=== PATIENT | female | born 1970 | race Caucasian/White ===

== ENCOUNTER 2017-03-13 06:24 | Day surgery (SDC) | payer OTHER ==
[~2017-03-13] VITALS: Ht 157.5 cm; Wt 57.7 kg
[~2017-03-13 06:24] MED LIST: CYCL-36 PO; DIFL500T PO; ROBA750T3 PO; VICO7.5T PO; Z.0.BCPILL PO
[2017-03-13 06:48] VITALS: BP 138/84; PULSE 85; RESP 20; TEMP 98.3; O2SAT 99
[2017-03-13] MEDS ORDERED: SODIUM CHLOR 0.9% 1000 ML INJ 1,000 ML IV SCH (07:00)
[2017-03-13] MEDS ORDERED: DIVA250ER PO (07:29)
[2017-03-13] MEDS ORDERED: LISI10TA PO (07:29)
[2017-03-13] MEDS ORDERED: TIZA4CAP3 PO (07:29)
[2017-03-13] MEDS ORDERED: DIAZEPAM 10 MG TAB PO ONE (08:00)
[2017-03-13 08:05] LABS: AUTOMATED NEUTROPHIL # 5.6 TH/MM3 (1.8-7.7); BASOPHIL # 0.1 TH/MM3 (0-0.2); BASOPHIL % 0.9 % (0.0-2.0); EOSINOPHIL # 0.3 TH/MM3 (0-0.4); EOSINOPHIL % 3.4 % (0.0-4.0); HEMATOCRIT 37.5 % (35.0-46.0); HEMOGLOBIN 13.5 GM/DL (11.6-15.3); LYMPH % 29.2 % (9.0-44.0); LYMPHOCYTE # 2.9 TH/MM3 (1.0-4.8); MEAN PLATELET VOLUME 7.6 FL (7.0-11.0); MONO % 9.4 % (0.0-8.0); MONOCYTE # 0.9 TH/MM3 (0-0.9); NEUT % 57.1 % (16.0-70.0); PLATELET COUNT 388 TH/MM3 (150-450); RED BLOOD COUNT 3.99 MIL/MM3 (4.00-5.30); RED CELL DISTRIBUTION WIDTH 13.4 % (11.6-17.2); WHITE BLOOD COUNT 9.8 TH/MM3 (4.0-11.0)
[2017-03-13 08:11] LABS: MEAN CORPUSCULAR HGB CONC 36.1 % (32.0-36.0)
[2017-03-13 08:12] LABS: PROTHROMBIN TIME - PATIENT 9.7 SEC (9.8-11.6)
[2017-03-13 08:36] LABS: BICARBONATE 24.3 MEQ/L (21.0-32.0); CALCIUM 9.1 MG/DL (8.5-10.1); CREATININE 1.01 MG/DL (0.50-1.00)
--- NOTE | 2017-03-13 09:19 | PD.RAD ---
Post Procedure Progress Note Pre Procedure Diagnosis: (1) Head ache Post Procedure Diagnosis: (1) Head ache Procedure Date: Mar 13, 2017 Supervising Radiologist: Ervin Smith Estimated blood loss: None Anesthesia: Local Plan of Activity Patient to Unit: ROPU Patient Condition: Good Additional Comments: LP completed. Single puncture at L3/L4. Clear CSF Opening pressure-18.5 Closing pressure 7 Full dictated report to follow See PACS Report for procedural detail/treatment Ervin Smith MD Mar 13, 2017 09:19
[2017-03-13 09:20] VITALS: BP 141/89; PULSE 73; RESP 18; TEMP 98.4; O2SAT 100
--- NOTE | 2017-03-13 09:39 | RADRPT ---
EXAM DATE/TIME: 03/13/2017 10:09 [place] COMPARISON: No previous studies available for comparison. INDICATIONS : Patient presents with pseudotumor cerebri in need of lumbar puncture with opening pressures for evalu ation. MEDICAL HISTORY : Anxiety Migraines CVA 2017 [place] SURGICAL HISTORY : Endometrial ablation DNC Breast reduction LEEP ENCOUNTER: Initial ACUITY: 4 - 6 months PAIN SCORE: 5/10 LOCATION: Right Lower back and leg LUMBAR PUNCTURE TIME: 0904 hours FLUORO TIME: 1.17 minutes ACCESS LEVEL: L3-4 OPENING PRESSURE: 18.5 cm of water CLOSING PRESSURE: 7 cm of water FLUID: 22 cc of clear CSF was collected and sent to the laboratory for analysis. PROCEDURE : 1. Fluoroscopic guided lumbar puncture. 2. Recording of opening pressure. The risks, benefits and alternatives to the procedure were explained and verbal and written consent w as obtained. The site was prepped in sterile fashion. Full sterile technique was used, including ca p, mask, sterile gloves and gown and a large sterile sheet. Hand hygiene and 2% chlorhexidine and/or betadine/alcohol prep was utilized per protocol for cutaneous antisepsis. The skin and subcutaneous tissues were infiltrated with local anesthetic solution. With fluoroscopic guidance the lumbar thecal sac was punctured at the above level described above and the opening pressure was recorded. The above described fluid was removed without difficulty. The patient tolerated the procedure well and there were no complications. CONCLUSION: Uncomplicated fluoroscopically guided lumbar puncture with pressures as above. Ervin Smith MD on March 13, 2017 at 9:37 Board Certified Radiologist. This report was verified electronically.
[2017-03-13 10:12] LABS: TOTAL PROTEIN,CSF 35.2 MG/DL (15.0-45.0)
[2017-03-13 11:03] LABS: RBC TUBE #1 20 /MM3; VOLUME TUBE # 1 4.8 ML; WBC TUBE #1 0 /MM3 (0-10)
[2017-03-13 11:04] LABS: CSF LYMPHOCYTES 0 %; CSF NEUTROPHILS 0 %
[2017-03-13 11:07] LABS: SUPERNATE COLOR TUBE #1 CLEAR (CLEAR)
[2017-03-13 11:09] LABS: CSF NEUTROPHILS 0 %; RBC TUBE #4 15 /MM3; WBC TUBE #4 3 /MM3 (0-10)
[2017-03-13 11:10] VITALS: BP 127/83; PULSE 85; RESP 20; O2SAT 99
[2017-03-13 11:28] LABS: CSF LYMPHOCYTES 100 %
[2017-03-14 09:50] LABS: CMV DNA QUANT BY RAPID PCR Negative (Negative); CMV PCR SPECIMEN SOURCE LUMBAR PUNCTURE
[2017-03-14 12:01] LABS: HSV 1,PCR Negative (Negative)
[2017-03-15 11:51] LABS: VZV PCR RESULT <500 (<500 copies)
[2017-03-15 19:52] LABS: CSF CRYPTOCOCCUS ANTIGEN NOT DETECTED (NEGATIVE)
[2017-03-16 09:28] LABS: CSF CRYPTOCOCCUS AG CONF ND (NOT DETECTD)
== END 2017-03-13 11:10 | disposition home or self-care (01) ==
LOC: HROP 06:24 → HRIP 06:37 → HROP 11:10
PROVIDERS: ATTEND Psychiatry & Neurology Neurology
DX: G93.2 Benign intracranial hypertension (principal); G35 Multiple sclerosis; G43.909 Migraine, unspecified, not intractable, without status migrainosus; F41.9 Anxiety disorder, unspecified; Z86.73 Personal history of transient ischemic attack (TIA), and cerebral infarction without residual deficits
CPT/HCPCS: 62270; 77003; 80048; 82040; 82042; 82784; 82945; 83873; 83916; 84157; 85025; 85610; 85730; 86403; 86618; 87070; 87205; 87497; 87529; 87799; 88108; 89051; J7030

== ENCOUNTER 2017-03-16 08:18 | Emergency (ER) | payer OTHER ==
[~2017-03-16] VITALS: Ht 157.5 cm; Wt 75.0 kg
[~2017-03-16 08:18] MED LIST changes: -CYCL-36 PO; -DIFL500T PO; +DIVA250ER PO; +LISI10TA PO; -ROBA750T3 PO; +TIZA4CAP3 PO; -VICO7.5T PO; -Z.0.BCPILL PO
[2017-03-16 08:22] VITALS: BP 188/104; PULSE 86; RESP 18; TEMP 97.6; O2SAT 99
[2017-03-16] MEDS ORDERED: SODIUM CHLOR 0.9% 1000 ML INJ 1,000 ML IV ONE ×2 (08:37→08:45)
[2017-03-16 08:42] VITALS: PULSE 76; RESP 18; O2SAT 98
[2017-03-16] MEDS ORDERED: diphenhydrAMINE HCL 50 MG/ML VIAL IVP ONE (08:45)
[2017-03-16] MEDS ORDERED: MORPHINE SULFATE 4 MG/ML INJ IV PUSH ONE (08:45)
[2017-03-16] MEDS ORDERED: KETOROLAC TROMETHAMINE 30 MG/ML (IVP) VIAL IVP ONE (08:45)
[2017-03-16] MEDS ORDERED: SODIUM CHLORIDE 0.9% FLUSH 10 ML FLUSH IVF PRN (08:45)
[2017-03-16] MEDS ORDERED: PROCHLORPERAZINE INJ 10 MG/2 ML VIAL IVP ONE (08:45)
--- NOTE | 2017-03-16 08:49 | PD ---
HPI Chief Complaint: Back/ Neck Pain or Injury Time Seen by Provider: 08:30 Travel History International Travel<30 days: No Contact w/Intl Traveler<30days: No Traveled to known affect area: No History of Present Illness HPI The patient is a 46-year-old female who presents emergency department for headache. The patient is currently undergoing evaluation by her neurologist , Dr. Amador, for MS. The patient underwent MRI and MRA in January, had possible findings concerning for MS. The patient was also evaluated by ophthalmology for possible optic neuritis. She is had intermittent left eye complaints as well as intermittent right lower extremity complaints of weakness and numbness. The patient underwent lumbar puncture by interventional radiology 2 days ago. The patient states her last 3 days she's been lying in bed, getting up going to the bathroom, however, she went to work today she developed a headache. The headache radiates from the lower back up into the neck and posterior aspect of the head, is worse with movements, unsure if it is worse with standing upright. She denies any nausea or vomiting. She denies any acute focal deficits. The patient call the radiology suite advised her to come to the emergency department for evaluation. She does have a history of migraines. PFSH Past Medical History Cancer: No Cardiovascular Problems: No Diabetes: No Endocrine: No Genitourinary: Yes (prone to uti) Hepatitis: No Hiatal Hernia: No Hypertension: Yes Immune Disorder: No (gets colds frequently) Musculoskeletal: Yes (CHRONIC BACK PAIN) Neurologic: Yes (migraines) Psychiatric: No Reproductive: No Respiratory: No Immunizations Current: No Migraines: Yes Thyroid Disease: No ?: Not LMP: 02/24/17 : 2 Para: 1 : 1 Dilation and Curettage (D&C): Yes Past Surgical History AICD: No Gynecologic Surgery: Yes (LEEP, BREAST REDUCTION) Joint Replacement: No Pacemaker: No Other Surgery: Yes (BREAST REDUCT 92 LEEP 03) Social History Alcohol Use: Yes (RARE) Tobacco Use: No Substance Use: No Allergies-Medications (Allergen,Severity, Reaction): Coded Allergies: butorphanol (Unverified Allergy, Severe, 03/16/17) Reported Meds & Prescriptions Reported Meds & Active Scripts Active Reported Depakote ER (Divalproex Sodium) 250 Mg Robert 250 Mg PO DAILY Lisinopril-Hctz 10-12.5 Mg Tab 1 Tab PO DAILY Tizanidine (Tizanidine HCl) 4 Mg Cap 4 Mg PO TID Review of Systems Except as stated in HPI: all other systems reviewed are Neg General / Constitutional: No: Fever Eyes: No: Blurred Vision, Photophobia HENT: Positive: Headaches, Neck Pain Cardiovascular: No: Chest Pain or Discomfort Respiratory: No: Shortness of Breath Gastrointestinal: No: Nausea, Vomiting, Abdominal Pain Musculoskeletal: Positive: Pain (back pain) Physical Exam Narrative GENERAL: Awake, alert, pleasant 46-year-old female who appears her stated age and is in no acute respiratory distress. SKIN: Focused skin assessment warm/dry. HEAD: Atraumatic. Normocephalic. EYES: Pupils equal and round. Pupils are 4 mm bilateral and reactive. ENT: No nasal bleeding or discharge. Mucous membranes pink and moist. NECK: Trachea midline. No JVD. Patient is able to rotate the neck to left and right as well as the chin to the chest. No true meningeal signs. CARDIOVASCULAR: Regular rate and rhythm. No murmur appreciated. RESPIRATORY: No accessory muscle use. Clear to auscultation. Breath sounds equal bilaterally. GASTROINTESTINAL: Abdomen soft, non-tender, nondistended. MUSCULOSKELETAL: No obvious deformities. No clubbing. No cyanosis. No edema. NEUROLOGICAL: Awake and alert. No obvious cranial nerve deficits. Motor grossly within normal limits. Normal speech. Nonfocal. Oriented 4. Follows commands without difficulty. PSYCHIATRIC: Appropriate mood and affect; insight and judgment normal. Data Data Last Documented VS Vital Signs Date Time Temp Pulse Resp B/P (MAP) Pulse Ox O2 Delivery O2 Flow Rate FiO2 03/16/17 08:42 76 18 98 Room Air 03/16/17 08:22 97.6 Orders Orders Ecg Monitoring (03/16/17 08:37) Iv Access Insert/Monitor (03/16/17 08:37) Oximetry (03/16/17 08:37) Sodium Chloride 0.9% Flush (Ns Flush) (03/16/17 08:45) Ketorolac Inj (Toradol Inj) (03/16/17 08:45) Prochlorperazine Inj (Compazine Inj) (03/16/17 08:45) Diphenhydramine Inj (Benadryl Inj) (03/16/17 08:45) Sodium Chlor 0.9% 1000 Ml Inj (Ns 1000 M (03/16/17 08:37) Sodium Chlor 0.9% 1000 Ml Inj (Ns 1000 M (03/16/17 08:45) Morphine Inj (Morphine Inj) (03/16/17 08:45) Ed Discharge Order (03/16/17 10:33) MDM Medical Decision Making Medical Screen Exam Complete: Yes Emergency Medical Condition: Yes Medical Record Reviewed: Yes Differential Diagnosis Differential diagnosis includes post lumbar headache, migraine, tension headache , subarachnoid hemorrhage. Narrative Course IV was established and the patient was administered 2 L of IV fluids, Toradol, Benadryl, Compazine, and morphine. The patient was then monitored in the emergency department. The patient was reevaluated at 10:30 AM her headache had significantly improved. She feels well enough to go home. I will write Fioricet as needed. She is advised to follow-up with her neurologist and return if symptoms worsen or progress. Diagnosis Primary Impression: Cephalgia Qualified Codes: R51 - Headache Patient Instructions: General Instructions Additional Instructions: Ride home with family or friends. Medications as directed. When he fluids to stay hydrated. Follow-up with your neurologist. Return if symptoms worsen or progress. Med/Other Pt SpecificInfo: Prescription(s) given Scripts Ydvinsguew-Crhpueordfzgz-Tmfqlmkr (Fioricet) 50-300-40 Mg Cap 1 CAP PO Q4H Y for HEADACHE, #10 CAP 0 Refills Prov: Patrice Hernandez MD 03/16/17 Disposition: 01 DISCHARGE HOME Condition: Stable Patrice Hernandez MD Mar 16, 2017 08:49
[2017-03-16] MEDS ORDERED: BUTA1CAP PO (10:35)
[2017-03-16 10:51] VITALS: BP 173/77; PULSE 77; RESP 18; O2SAT 99
== END 2017-03-16 11:08 | disposition home or self-care (01) ==
LOC: NEPE 08:18
DX: R51 Headache (principal); I10 Essential (primary) hypertension; R53.1 Weakness; R20.0 Anesthesia of skin; M54.9 Dorsalgia, unspecified; Z87.440 Personal history of urinary (tract) infections
CPT/HCPCS: 96361; 96374; 96375; 99284; J0780; J1200; J1885; J2270; J7030

== ENCOUNTER 2018-01-27 06:11 | Observation (INO) ==
[2018-01-27] MEDS ORDERED: Sodium Chlor 0.9% Inj 500 ML IV.CONT ONE (06:45)
[2018-01-27] MEDS ORDERED: ceFAZolin 2 GM IV; once IV.SIG SCH (06:45)
[2018-01-27] MEDS ORDERED: Chlorhexidine Gluconate 2% 1 Pack (2 Cloths) TOPICAL ONE (06:45)
[2018-01-27] MEDS ORDERED: Metoprolol Tartrate 25 MG Tablet PO ONE (06:45)
[2018-01-27] MEDS ORDERED: Bupivacaine PF 0.25% Inj 30 ML Vial ONE (06:53)
[2018-01-27 07:05] VITALS: RESP 18
[2018-01-27] MEDS ORDERED: Bupivacaine/Epinephrine PF Inj 0.5% 30 ML Vial ONE (07:21)
[2018-01-27] MEDS ORDERED: Sugammadex Inj 200 MG/2 ML Vial IV.PUSH ONE (07:25)
[2018-01-27] MEDS ORDERED: Lidocaine PF 1% Inj 5 ML Syringe OTHER ONE (07:33)
[2018-01-27] MEDS ORDERED: Ketorolac Inj 30 MG/ML (IVP) Vial IV.PUSH ONE (07:33)
[2018-01-27] MEDS ORDERED: Ibuprofen 600 MG Tablet PO PRN (09:36)
[2018-01-27] MEDS ORDERED: *Ondansetron Inj 4 MG/2 ML Vial PERIprocedural Use ONLY ONE (10:02)
[2018-01-27] MEDS ORDERED: fentaNYL Citrate Inj 100 MCG/2 ML Ampul ONE (10:02)
[2018-01-27] MEDS ORDERED: *Meperidine Inj 25 MG/ML Vial PERIprocedural Use ONLY ONE (10:02)
[2018-01-27] MEDS ORDERED: Morphine Inj 4 MG/ML Vial ONE (10:02)
--- NOTE | 2018-01-27 10:21 | MP ---
cc: Noa Pitt MD DATE OF OPERATION: 01/27/2018 PREOPERATIVE DIAGNOSES: Dysfunctional uterine bleeding, dysmenorrhea, stenotic cervix POSTOPERATIVE DIAGNOSES: Dysfunctional uterine bleeding, dysmenorrhea, stenotic cervix PROCEDURE PERFORMED: Examination under anesthesia, laparoscopic-assisted supracervical hysterectomy, left salpingo-oophorectomy, right partial salpingectomy, cystoscopy. SURGEON: Noa Pitt MD. ANESTHESIA: General endotracheal anesthesia. FLUIDS: 800 mL crystalloid. ESTIMATED BLOOD LOSS: 75 mL. URINE OUTPUT: 700 mL clear yellow at the end of the procedure. FINDINGS: Uterus was approximately 10-12 weeks in size. The right ovary appeared normal. The left fallopian tube and ovary were densely adherent to the bowel on the left side and Essure was visible in that adnexal complex possibly perforated. Liver edge appeared normal. DESCRIPTION OF PROCEDURE: The patient was taken to the operating room where general anesthesia was found to be adequate. She was then prepped and draped in the normal sterile fashion in the dorsal lithotomy position. A Georges catheter was inserted into the urinary bladder using sterile technique. A weighted speculum was placed in the vagina. A single-tooth tenaculum applied to the anterior lip of the cervix. The cervix was noted to be extremely stenotic. Dilation with Pranav dilators was performed to accommodate the [employer] uterine manipulator. The tenaculum was removed. The speculum was removed. The gloves were changed and attention was turned to the abdominal portion of the procedure. A 5 mm incision was made just above the umbilicus and a 5 mm trocar and camera were inserted into the abdominal cavity under direct visualization. The abdomen was insufflated with approximately 3.5 liters of CO2 gas. A 10-12 mm trocar was placed in the left lower quadrant and a 5 mm trocar placed in the right lower quadrant under direct visualization. The Harmonic scalpel was used to transect the round ligaments bilaterally. The bladder was then gently dissected off the anterior surface of the uterus and cervix. The left tube and ovary were gently dissected off of the bowel with the Harmonic scalpel. The left fallopian tube and ovary were dissected from the broad ligament and the uterine artery on the left side was transected with the Harmonic scalpel. The broad ligament was transected down to the level of the cervix on the left side. The right uteroovarian ligament was transected with the Harmonic scalpel. The right broad ligament and uterine artery was transected with Harmonic scalpel down to the level of the cervix. The uterus was then amputated from the cervix. The left fallopian tube and ovary were sent to pathology. The uterus was then extracted and sent to pathology separately. The partial right salpingectomy was then performed to ensure complete removal of the Essure device and the right fallopian tube was sent separately to pathology. The right ovary appeared normal. There was hemostasis from all pedicles. The endocervical canal was cauterized with the Harmonic scalpel. Chel was placed over the pedicles. The crossbow suture passer was used to close the fascia and peritoneum of the 10-12 mm incision. All the instruments were removed from the abdominal cavity. The gas was allowed to escape. The skin incisions were closed with 4-0 Monocryl. The [place] uterine manipulator had been removed intraoperatively. The Georges catheter was used to instill approximately 250 mL of saline into the bladder. The Georges catheter was removed. Cystoscopy was performed. No bladder injury was noted and urine was noted to be effluxing from both of the ureteral meatuses. The cystoscope was removed. The Georges catheter was replaced. The patient was awakened from anesthesia and transferred to recovery room in stable condition. Upon cleaning of the patient, there was a lesion noted in the skin of the left upper quadrant. Appeared to be a previous skin biopsy, but this was not inflamed and not bleeding. COUNTS: The sponge, lap, needle, and instrument counts were correct. PATHOLOGY: Uterus, partial right fallopian tube, left fallopian tube and ovary. MD JEAN Hernandez/nydia , 10:00 AM , 10:09 AM [facility]U
[2018-01-27] MEDS: buPROPion 150 MG 12 HR Tablet PO SCH (14:41)
[2018-01-27] MEDS: HYDROmorphone PF Inj 1 MG/ML Ampul IV.PUSH PRN ×2 (15:03→21:21)
[2018-01-27] MEDS ORDERED: TERIFLUNOMIDE 14 MG PO SCH (21:00)
[2018-01-27] MEDS ORDERED: traZODone 50 MG Tablet PO SCH (21:00)
[2018-01-27] MEDS ORDERED: Zolpidem Tartrate 5 MG Tablet PO PRN (21:00)
[2018-01-27] MEDS: Docusate Sodium 100 MG Capsule PO SCH (21:18)
[2018-01-28 04:18] VITALS: BP 110/72; PULSE 63; TEMP 98.1; O2SAT 97
[2018-01-28 05:49] LABS: Baso # (Auto) 0.1 th/mm3 (0.0-0.2); Baso % (Auto) 0.4 % (0.0-2.0); Hematocrit 32.3 % (35.0-46.0); Hemoglobin 10.9 gm/dL (11.6-15.3); Lymph # (Auto) 1.7 th/mm3 (1.0-4.8); Lymph % (Auto) 10.8 % (9.0-44.0); Mean Corpuscular HGB Conc 33.7 % (32.0-36.0); Mean Corpuscular Hemoglobin 32.5 pg (27.0-34.0); Mean Corpuscular Volume 96.6 fL (80.0-100.0); Mean Platelet Volume 7.9 fL (7.0-11.0); Mono # (Auto) 1.3 th/mm3 (0.0-0.9); Mono % (Auto) 8.5 % (0.0-8.0); Neut # (Auto) 12.5 th/mm3 (1.8-7.7); Neut % (Auto) 80.3 % (16.0-70.0); Platelet Count 320 th/mm3 (150-450); Red Blood Count 3.34 mil/mm3 (4.00-5.30); Red Cell Distribution Width 14.5 % (11.6-17.2); White Blood Count 15.5 th/mm3 (4.0-11.0)
--- NOTE | 2018-01-28 07:56 | P.OBGPN ---
POD #1 LASH, LSO doing well, uo good,CBC stable no N/V, tolerating liquids PE: VSS afeb Abd: soft, NT, ND, incisions C/d/I Ext: no ECC , NT scant vaginal bleeding A/P: S/p LASH/LSO for DUB, dysmenorrhea, stenotic cx d/c prather, OOB, reg diet, po percocet/motrin d/c home rto 2 wks no lifting
[2018-01-28] MEDS: HYDROmorphone PF Inj 1 MG/ML Ampul IV.PUSH PRN ×2 (08:09→13:22)
[2018-01-28] MEDS: Docusate Sodium 100 MG Capsule PO SCH (08:11)
[2018-01-28] MEDS: buPROPion 150 MG 12 HR Tablet PO SCH (08:11)
[2018-01-28] MEDS ORDERED: Lisinopril 20 MG Tablet PO SCH (09:00)
[2018-01-28] MEDS ORDERED: hydroCHLOROthiazide 25 MG Tablet PO SCH (09:00)
[2018-01-28] MEDS ORDERED: Divalproex 500 MG ER Tablet PO SCH (09:00)
== END 2018-01-28 14:22 | disposition home or self-care (01) ==
LOC: HSDC 06:11 → H1EA 06:11
PROVIDERS: ADMIT Obstetrics & Gynecology; ATTEND Obstetrics & Gynecology
PROC: LAPLASH (ICD-10-PCS; 2018-01-27 07:33)